=== PATIENT | female | born 1945 | race African-American/Black ===

== ENCOUNTER 2018-02-18 05:02 | Emergency (ER) | payer OTHER ==
[~2018-02-18] VITALS: Ht 157.5 cm; Wt 49.0 kg
[2018-02-18] MEDS ORDERED: DIPHENHYDRAMINE 25MG CAPSULE PO ONE (06:45)
[2018-02-18 08:10] VITALS: BP 153/83
== END 2018-02-18 08:27 | disposition home or self-care (01) ==
LOC: ER 06:12
DX: B01.9 Varicella without complication (principal); F17.200 Nicotine dependence, unspecified, uncomplicated; I10 Essential (primary) hypertension
CPT/HCPCS: 99283; 99406; Q0163

== ENCOUNTER 2021-07-19 02:17 | Inpatient (IN) | payer OTHER ==
[~2021-07-19] VITALS: Ht 157.5 cm; Wt 74.0 kg
[2021-07-19] MEDS ORDERED: ASPIRIN 81MG TABLET PO ONE (03:15)
[2021-07-19] MEDS ORDERED: NITROGLYCERIN OINT 1GM/INCH UDPKT TD ONE (03:15)
[2021-07-19 03:21] LABS: BASOPHILS % 1.4 % (0.0-2.0); EOSINOPHILS % 2.7 % (0.0-5.0); HEMATOCRIT. 38.8 % (36.0-48.0); HEMOGLOBIN. 12.5 g/dL (12.0-16.0); LYMPHOCYTES % 34.6 % (20.0-50.0); MEAN CORPUSCULAR HEMOGLOBIN 28.5 pg (28.0-32.0); MEAN CORPUSCULAR VOLUME 88.2 fL (81.0-99.0); MEAN PLATELET VOLUME 9.3 fl (7.4-10.4); MONOCYTES % 7.9 % (2.0-8.0); NEUTROPHILS % 53.4 % (40.0-76.0); PLATELET 239 x1000/uL (130-400); RED CELL DISTRIBUTION WIDTH 15.7 % (11.6-14.6)
[2021-07-19 03:22] LABS: CHLORIDE 105 mEq/L (98-107)
[2021-07-19] MEDS ORDERED: IOHEXOL-350 100 ML BOTTLE ONE (06:22)
[2021-07-19 09:00] VITALS: BP 128/74
[2021-07-19 10:10] VITALS: BP 128/74
[2021-07-19] MEDS ORDERED: FOLI-43 PO (10:53)
[2021-07-19] MEDS ORDERED: AMLO5TAB88 PO (10:53)
[2021-07-19] MEDS ORDERED: LOSA100T32 PO (10:53)
[2021-07-19] MEDS ORDERED: HYDR12.54 PO (10:53)
[2021-07-19] MEDS ORDERED: ATOR20TA65 PO (10:53)
[2021-07-19] MEDS ORDERED: ACET-2708 PO (10:56)
[2021-07-19] MEDS ORDERED: ASPI-1406 PO (10:56)
[2021-07-19] MEDS ORDERED: NA PHOS,M-B/NA PHOS,DI-BA ENEMA 118ML PR PRN (11:15)
[2021-07-19] MEDS ORDERED: MAGNESIUM/ALUMINUM HYDROXIDE/SIMETHICONE 30ML UDC PO PRN (11:15)
[2021-07-19] MEDS ORDERED: LORAZEPAM 0.5MG TABLET PO PRN (11:15)
[2021-07-19] MEDS ORDERED: DIPHENHYDRAMINE 50MG/ML VIAL IV PRN (11:15)
[2021-07-19] MEDS ORDERED: DOCUSATE SODIUM 100MG CAPSULE PO PRN (11:15)
[2021-07-19] MEDS ORDERED: ACETAMINOPHEN 650MG SUPP PR PRN (11:15)
[2021-07-19] MEDS ORDERED: GUAIFENESIN 200MG/10ML SUGAR FREE UDC PO PRN (11:15)
[2021-07-19] MEDS ORDERED: MORPHINE SULFATE 2 MG/ML CPJ (NOT FOR IM USE) IV PRN (11:15)
[2021-07-19] MEDS ORDERED: ONDANSETRON HCL 4MG/2ML INJ IV PRN (11:15)
[2021-07-19] MEDS ORDERED: IPRATROPIUM/ALBUTEROL 0.5-3(2.5)MG/3ML NEB NEB PRN (11:15)
[2021-07-19] MEDS ORDERED: CLONIDINE 0.1MG TABLET PO PRN (11:15)
[2021-07-19] MEDS ORDERED: HYDROCODONE/ACETAMINOPHEN 5/325MG TABLET PO PRN (11:15)
[2021-07-19] MEDS ORDERED: ACETAMINOPHEN 325MG TABLET PO PRN (11:15)
[2021-07-19] MEDS ORDERED: NALOXONE HCL 0.4MG/ML VIAL IV PRN (11:30)
[2021-07-19 12:00] VITALS: BP 126/68
[2021-07-19] MEDS ORDERED: REGADENOSON 0.4 MG/5 ML IV NR (13:00)
[2021-07-19] MEDS ORDERED: *PATIENT'S OWN MEDICATION STORAGE XX SCH (14:30)
[2021-07-19] MEDS: CLOPIDOGREL 75MG TABLET PO SCH (15:24)
[2021-07-19] MEDS: NICOTINE 7MG PATCH TD SCH (15:26)
[2021-07-19 16:00] VITALS: BP 140/71
[2021-07-19 16:35] LABS: CREATINE KINASE 66 IU/L (26-192)
[2021-07-19 16:36] LABS: CREATINE KINASE MB FRACTION 1.2 ng/mL (0.5-3.6)
[2021-07-19 20:00] VITALS: BP 146/74
[2021-07-19] MEDS ORDERED: FAMOTIDINE 20MG TABLET PO SCH (21:00)
[2021-07-19 23:26] LABS: CREATINE KINASE MB FRACTION 1.1 ng/mL (0.5-3.6)
[2021-07-20] VITALS: BP 125/77
[2021-07-20 02:43] LABS: CLARITY URINE CLEAR (CLEAR); COLOR URINE YELLOW (YELLOW); KETONES URINE NEGATIVE (NEGATIVE); LEUKOCYTE ESTERASE URINE 2+ (NEGATIVE); NITRITE URINE NEGATIVE (NEGATIVE); OCCULT BLOOD URINE NEGATIVE (NEGATIVE); PH URINE 5.5 (4.5-8.0); PROTEIN URINE NEGATIVE (NEGATIVE); SPECIFIC GRAVITY URINE 1.022 (1.005-1.030); UROBILINOGEN URINE 0.2 E.U./dL (0.2-1.0)
[2021-07-20 03:21] LABS: CANNABINOID URINE SCREEN NEGATIVE (NEGATIVE); OPIATES URINE SCREEN NEGATIVE (NEGATIVE); PHENCYCLIDINE URINE SCREEN NEGATIVE (NEGATIVE)
[2021-07-20 03:22] LABS: *AMPHETAMINES SCREEN URINE NEGATIVE (NEGATIVE); *BARBITURATES SCREEN URINE NEGATIVE (NEGATIVE); *BENZODIAZEPINES SCREEN URINE NEGATIVE (NEGATIVE); *COCAINE SCREEN URINE NEGATIVE (NEGATIVE); METHADONE URINE SCREEN NEGATIVE (NEGATIVE)
[2021-07-20 04:00] VITALS: BP 135/68
[2021-07-20 06:47] LABS: CHLORIDE 108 mEq/L (98-107)
[2021-07-20 06:55] LABS: BASOPHILS % 0.7 % (0.0-2.0); EOSINOPHILS % 2.4 % (0.0-5.0); HEMATOCRIT. 35.2 % (36.0-48.0); HEMOGLOBIN. 11.5 g/dL (12.0-16.0); LYMPHOCYTES % 33.7 % (20.0-50.0); MEAN CORPUSCULAR HEMOGLOBIN 28.6 pg (28.0-32.0); MEAN CORPUSCULAR VOLUME 87.3 fL (81.0-99.0); MEAN PLATELET VOLUME 9.4 fl (7.4-10.4); MONOCYTES % 10.2 % (2.0-8.0); PLATELET 235 x1000/uL (130-400); RED BLOOD CELL COUNT 4.03 mill/uL (4.2-5.4); RED CELL DISTRIBUTION WIDTH 15.4 % (11.6-14.6)
[2021-07-20 08:00] VITALS: BP 134/84
[2021-07-20] MEDS ORDERED: ASPIRIN 81MG EC TABLET PO SCH (09:00)
[2021-07-20] MEDS ORDERED: AMLODIPINE 5MG TABLET PO SCH (09:00)
[2021-07-20] MEDS ORDERED: REGADENOSON 0.4 MG/5 ML IV ONE (09:27)
[2021-07-20 12:00] VITALS: BP 169/88
[2021-07-20] MEDS: CLOPIDOGREL 75MG TABLET PO SCH (12:35)
[2021-07-20] MEDS: NICOTINE 7MG PATCH TD SCH (12:37)
[2021-07-20] MEDS ORDERED: CLOP-31 MT (13:07)
[2021-07-20] MEDS ORDERED: AMLO10TA4 MT (13:07)
[2021-07-20] MEDS ORDERED: ASPI-1406 PO (13:07)
[2021-07-20] MEDS ORDERED: ATOR20TA65 PO (13:07)
[2021-07-20 13:32] VITALS: BP 130/71
[2021-07-20 16:03] VITALS: BP 130/71
== END 2021-07-20 16:40 | disposition home or self-care (01) | DRG 313 ==
LOC: ER 02:17 → 6WST 05:11 → ENRESERV 07:24
PROVIDERS: ADMIT Internal Medicine; ATTEND Internal Medicine
DX: R07.89 Other chest pain (principal); E78.5 Hyperlipidemia, unspecified; F17.210 Nicotine dependence, cigarettes, uncomplicated; I10 Essential (primary) hypertension; R73.9 Hyperglycemia, unspecified; Z20.822 Contact with and (suspected) exposure to COVID-19; R91.1 Solitary pulmonary nodule; I25.10 Atherosclerotic heart disease of native coronary artery without angina pectoris; Z79.02 Long term (current) use of antithrombotics/antiplatelets; Z79.82 Long term (current) use of aspirin; Z79.899 Other long term (current) drug therapy; Z95.5 Presence of coronary angioplasty implant and graft; Z88.6 Allergy status to analgesic agent
CPT/HCPCS: 36415; 71045; 71275; 78452; 80053; 80305; 81003; 82550; 82553; 83880; 84443; 84484; 85025; 85379; 87426; 93005; 93017; 93306; 93970; 97162; 99285; A9500; J2785; Q9967